=== PATIENT | male | born 1950 | race Hispanic/Latino ===

== ENCOUNTER 2025-05-21 11:23 | Emergency (ER) | payer OTHER, MEDICARE ==
[~2025-05-21] VITALS: Ht 172.7 cm; Wt 62.6 kg
[~2025-05-21 11:23] MED LIST: AEC81 PO; AMLO-257 PO; APIX5TAB PO; BICA50TA7 PO; BUPR-49 PO; CHOL-34 PO; CYCL-309 PO; DOCU-116 PO; EMPA25TA PO; FOLIC ACID PO; GABA100C PO; HYDR-4060 PO; LISI10TA24 PO; METF-444 PO; METF-446 PO; MULT-1289 PO; ROSU20TA98 PO; TAMS-55 PO; VITAMIN B12 PO
--- NOTE | 2025-05-21 11:39 | ERN ---
General Chief Complaint: Mechanical Fall Stated Complaint: FALL Time Seen by MD: 11:24 Source: patient History of Present Illness Initial Comments Patient is a 75-year-old gentleman coming in after he fell out of his wheelchair. 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 He states he was going up a ramp and wheelchair rolled back hitting himself in the head. Patient is complaining of headache. Patient states that this happened three days ago. [facility] for further evaluation. Allergies: Coded Allergies: No Known Drug Allergies (Unverified Allergy, Unknown, 09/30/23) Home Meds Active Scripts Docusate Sodium (Colace) 100 Mg Capsule, 100 MG PO BID for 30 Days, #60 CAP 0 Refills Prov:CLARENCE MUSTAFA MD 10/06/23 Hydrocodone/Acetaminophen (Hydrocodon-Acetaminophen 5-325) 5 Mg-325 Mg Tablet, 1-2 TAB PO Q6H PRN for MODERATE/SEVERE PAIN LEVEL, #56 TAB 0 Refills Prov:CLARENCE MUSTAFA MD 10/06/23 Gabapentin (Neurontin) 100 Mg Capsule, 100 MG PO TID, #90 CAP 0 Refills Prov:CLARENCE MUSTAFA MD 10/06/23 Cyclobenzaprine HCl (Cyclobenzaprine HCl) 10 Mg Tablet, 5 MG PO Q8H PRN for M USCLE SPASMS, #45 TAB 0 Refills Prov:CLARENCE MUSTAFA MD 10/06/23 Reported Medications Cholecalciferol (Vitamin D3) (Vitamin D3) 25 Mcg (1000 Unit) Tablet, 25 MCG PO QODAY, TAB 09/30/23 [Vitamin B12] No Conflict Check, 1000 MCG PO DAILY 09/30/23 Multivit-Min/FA/Lycopen/Lutein (Centrum Silver Men Tablet) 300 Mcg-60 Mcg-600 Mcg-300 Mcg Tablet, 1 EACH PO DAILY, TAB 09/30/23 Empagliflozin (Jardiance) 25 Mg Tablet, 12.5 MG PO DAILY, TAB 09/30/23 Bicalutamide (Bicalutamide) 50 Mg Tablet, 50 MG PO DAILY, TAB 09/30/23 [Folic Acid] No Conflict Check, 1 MG PO DAILY 09/30/23 Aspirin (ASPIRIN 81 MG ECTAB) 81 Mg Ectab, 81 MG PO DAILY, TAB.EC 09/30/23 Apixaban (Eliquis) 5 Mg Tablet, 5 MG PO BID, TAB 09/30/23 Bupropion HCl (Bupropion Xl) 150 Mg Tab.er.24h, 150 MG PO BID, TAB 09/30/23 Metformin HCl (Metformin HCl) 1,000 Mg Tablet, 1000 MG PO DAILY, TAB 09/30/23 Metformin HCl (Metformin HCl) 500 Mg Tablet, 500 MG PO HS, TAB 09/30/23 Rosuvastatin Calcium (Rosuvastatin Calcium) 20 Mg Tablet, 20 MG PO HS, TAB 09/30/23 Tamsulosin HCl (Flomax) 0.4 Mg Cap.er.24h, 0.4 MG PO HS, CAPSULE.DR 09/30/23 Lisinopril (Lisinopril) 10 Mg Tablet, 10 MG PO HS, TAB 09/30/23 Amlodipine Besylate (Amlodipine Besylate) 5 Mg Tablet, 7.5 MG PO DAILY, TAB 09/30/23 Past Medical History Past Medical History: Diabetes-Type II, High Cholesterol, Hypertension Past Surgical History: Other Surgical History Other: PROSTATE SX, ROS Dictation CONSTITUTIONAL: No chills, no fever, no weakness, no diaphoresis, no malaise. HEAD/FACE: signs of trauma. EENT: No eye pain, no blurred vision, no tearing, no double vision, no ear pain, no ear discharge, no nose pain, no nasal congestion, no throat pain, no throat swelling, no mouth pain. RESPIRATORY: No cough, no orthopnea, no SOB, no stridor, no wheezing. CARDIOVASCULAR: No chest pain, no edema, no palpitations, no syncope. GASTROINTESTINAL/ABDOMINAL: No abdominal pain, no constipation, no diarrhea, no nausea, no vomiting. GENITOURINARY: No abnormal discharge, no dysuria, no frequent urination, no hematuria. No complaints of pain in the genitals. MUSCULOSKELETAL: No back pain, no gout, no joint pain, no joint swelling, no muscle pain, no muscle stiffness, no neck pain. INTEGUMENTARY: No change in color, no change in hair/nails, no dryness, no lesion, no lumps, no rash. NEUROLOGICAL/PSYCH: No anxiety, not depressed, no emotional problem, no heada michael, no numbness, no pre-existing deficit, no history of seizures, no tremors, no weakness. HEMATOLOGIC/LYMPHATIC: Not anemic, no history of blood clots, no apparent bleeding, no bruising, glands not swollen. All Systems Negative, Except as Noted. Physical Exam Physical Exam Dictation VITAL SIGNS: Reviewed. GENERAL APPEARANCE: Alert, oriented x3, no acute distress, obese. HEAD AND FACE: traumatic. Occipital scalp hematoma EYES: PERRL, pink conjunctivas, eyelid no trauma, anterior chamber clear. EARS: Pinnas intact and no signs of trauma or erythema. Ear canals clear and no discharge. TMs no erythema. NOSE: No discharge, no bleeding. OROPHARYNX: Mouth normal, teeth no caries, tongue pink. Pharynx clear, no christa thema. Tonsils no exudates, no abscesses noted. Mucous membrane moist. NECK: Supple, non-tender, no thyromegaly, no masses, no JVD, no bruits. BREAST: Deferred. CHEST: No tenderness, no crepitus, no paradoxical movement, no retractions. LUNGS: Clear, well-ventilated, symmetric, no rales, no wheezing, no rhonchi, no stridor, good breath sounds bilaterally. HEART: Regular rate, regular rhythm, no murmur, no gallops. VASCULAR: No peripheral edema. ABDOMEN: Soft, positive bowel sounds, nondistended, no guarding, nontender, no rebound, no masses no hepatomegaly, no splenomegaly, no Chang's sign, no hernias. RECTAL: Deferred. GENITAL: Deferred. NEUROLOGICAL: Normal speech, gross motor function intact, gross sensory function intact. MUSCULOSKELETAL: Neck nontender, full range of motion, back nontender, full range of motion. EXTREMITIES: Nontender, full range of motion. SKIN: Color pink, dry, no turgor, no rash, no lacerations, no abrasions, no contusions. LYMPHATICS: Deferred. Results Laboratory and Microbiology Labs Reviewed?: Yes EKG/XRAY/US/CT/MRI CT Scan Comment [facility] [address] [place] [address] IMAGING REPORT Signed PATIENT: JOSE LOVE MR#: [id number] : 1950 SEX: M AGE: 75 LOCATION: [facility] ORDER 26 STATUS: REG ER REPORT#: [id number] SERVICE 25 REASON: fall ORDERING PHYSICIAN: LORIE SALAS MD PROCEDURE: HEAD WO - CT HEAD/BRAIN W/O CONTRAST CT HEAD/BRAIN W/O CONTRAST HISTORY: Status post fall COMPARISON: None TECHNIQUE: Multiple sequential axial images of the head were obtained from the base of the skull through vertex. Patient was not given contrast through intravenous route. FINDINGS: The ventricles and extraventricular CSF spaces are dilated consistent with cerebral atrophy. Nonspecific white matter changes seen. There is no midline shift, mass effect or herniation. No acute intracranial bleed is seen. Visualized portion of the paranasal sinuses are grossly within normal limits. IMPRESSION: 1. No acute intracranial bleed is seen. 2. Atrophy with white matter changes. CT was performed with one or more following dose reduction techniques: automated exposure control, adjustment of the mA and kv according to patient's size, or use of a iterative reconstruction technique. DICTATED BY: AMAN VICTOR MD DATE: 05/21/251239 ELECTRONICALLY SIGNED BY: AMAN VICTOR MD DATE: 05/21/25 1256 [facility] MDM: Differential diagnosis: Fall, head injury, Rationale: Tests considered and ordered secondary to shared decision making include: Previous outside records reviewed: Old ER visits. Risk of complication and/or morbidity or mortality of patient management: None Medications-Per medication reconciliation Patient is a 75-year-old male coming in to be evaluated after he had a fall out of his wheelchair. This occurred three days ago. Patient is a alert and oriented CT of the head did not disclose acute findings. Patient will be disch arged in stable condition with a diagnosis of fall and injury. ED Course Orders Procedure Category Date Status Time Ct Head/Brain W/O CT 05/21/25 Resulted Contrast 11:26 Hydrocodone/Apap PHA 05/21/25 Complete 5/325 ([place] 5/325mg) 13:00 Current Medications Medications (Trade) Dose Ordered Sig/Jonah Route PRN Reason Start Time Stop Time Status Last Admin Dose Admin Acetaminophen/ Hydrocodone Bitart (NORco 5/325MG) 1 tab ONCE ONCE PO 05/21/25 13:00 05/21/25 12:50 DC Vital Signs Date Time Temp Pulse Resp B/P (MAP) Pulse Ox O2 Delivery O2 Flow Rate FiO2 05/21/25 11:36 98.1 80 16 116/56 98 Room Air* 0 21 05/21/25 11:24 97.5 82 18 118/55 100 Room Air DX & DISP Disposition: Discharge Departure Impression: Primary Impression: Fall from wheelchair Additional Impression: Head injury Condition: Stable Additional Instructions: FOLLOW-UP WITH PRIMARY CARE PROVIDER IN 1 TO 2 DAYS. TAKE MEDICATIONS DIRECTED HERE IN THE EMERGENCY ROOM. OKAY TO CONTINUE HOME MEDICATIONS UNLESS OTHERWISE DISCUSSED DURING YOUR VISIT IN THE EMERGENCY ROOM TODAY. RETURN TO YOUR NEAREST EMERGENCY ROOM IF SYMPTOMS WORSEN OR IF THERE IS NO IMPROVEMENT. CALL 911 IF YOU NEED IMMEDIATE ASSISTANCE. TAKE TYLENOL [id number] NEEDED AND IF NO CONTRAINDICATIONS ARE PRESENT. INCREASE ORAL HYDRATION. A WOUND CULTURE OR URINE CULTURE WAS ORDERED HERE IN THE EMERGENCY ROOM DEPARTMENT PLEASE FOLLOW-UP WITH PRIMARY CARE PROVIDER AND ADVISE THEM TO GET REPORTS FROM OUR FACILITY. IF YOU HAD ANY BRIAN WRAP/SPLINTS THAT WERE APPLIED HERE, PLEASE DO NOT REMOVE THEM UNTIL YOU SEE YOUR PRIMARY CARE OR SPECIALTY. Referrals: Referrals: SELF,REFERRAL (PCP) BERNARD ALBARRAN MD Time of Disposition: 12:59 LORIE SALAS MD May 21, 2025 11:39
--- NOTE | 2025-05-21 12:56 | HMCIMG ---
CT HEAD/BRAIN W/O CONTRAST HISTORY: Status post fall COMPARISON: None TECHNIQUE: Multiple sequential axial images of the head were obtained from the base of the skull through vertex. Patient was not given contrast through intravenous route. FINDINGS: The ventricles and extraventricular CSF spaces are dilated consistent with cerebral atrophy. Nonspecific white matter changes seen. There is no midline shift, mass effect or herniation. No acute intracranial bleed is seen. Visualized portion of the paranasal sinuses are grossly within normal limits. IMPRESSION: 1. No acute intracranial bleed is seen. 2. Atrophy with white matter changes. CT was performed with one or more following dose reduction techniques: automated exposure control, adjustment of the mA and kv according to patient's size, or use of a iterative reconstruction technique.
[2025-05-21] MEDS ORDERED: HYDROcodone/APAP 5/325 1 TAB TABLET PO ONE (13:00)
[2025-05-21 14:12] VITALS: BP 118/60; PULSE 76; RESP 16; TEMP 98.1; O2SAT 98
--- NOTE | 2025-05-21 16:03 | HMCIMG ---
THORACIC SPINE 2VWS HISTORY: Status post fall COMPARISON: None FINDINGS: 3 images of thoracic spine were obtained. There is dextroscoliosis. There is straightening of normal lordotic curvature which may be related to muscle spasm or positioning. No loss of vertebral height is seen. No fracture or dislocation is seen. Degenerative changes are seen. IMPRESSION: 1. No fracture is seen.
--- NOTE | 2025-05-21 16:05 | HMCIMG ---
FOOT LIMITED 2VWS LT HISTORY: Status post fall COMPARISON: None TECHNIQUE: 3 images of the left foot were obtained. FINDINGS: There is no acute displaced fracture or dislocation. Interphalangeal joint space narrowing is seen. Degenerative changes are seen. IMPRESSION: 1. Findings as described above.
== END 2025-05-21 14:29 | disposition home or self-care (01) ==
LOC: EDH 11:23
DX: S09.90XA Unspecified injury of head, initial encounter (principal); E11.9 Type 2 diabetes mellitus without complications; E78.00 Pure hypercholesterolemia, unspecified; I10 Essential (primary) hypertension; Z79.01 Long term (current) use of anticoagulants; Z79.82 Long term (current) use of aspirin; Z79.84 Long term (current) use of oral hypoglycemic drugs; Z79.899 Other long term (current) drug therapy; Z89.511 Acquired absence of right leg below knee; Z99.3 Dependence on wheelchair; W05.0XXA Fall from non-moving wheelchair, initial encounter; Y93.89 Activity, other specified; Y92.89 Other specified places as the place of occurrence of the external cause; Y99.8 Other external cause status
CPT/HCPCS: 70450; 72070; 73620; 99284